=== PATIENT | male | born 1990 | race Caucasian/White ===

== ENCOUNTER 2019-01-23 21:32 | Emergency (ER) | payer OTHER ==
[~2019-01-23] VITALS: Wt 70.3 kg
[2019-01-23 21:32] VITALS: BP 128/76
[~2019-01-23 21:32] MED LIST: CIPRODEX 0.3%-7.5 ML OT; MOTRIN800 MG PO; PREDNISONE10 MG PO; TRIMOX500 MG PO
[2019-01-23] MEDS ORDERED: ZOFRAN4 MG PO (21:42)
== END 2019-01-23 22:00 | disposition home or self-care (01) ==
LOC: ED 21:32
DX: R11.2 Nausea with vomiting, unspecified (principal); R42 Dizziness and giddiness; F14.90 Cocaine use, unspecified, uncomplicated; F12.90 Cannabis use, unspecified, uncomplicated; F17.200 Nicotine dependence, unspecified, uncomplicated; Z90.49 Acquired absence of other specified parts of digestive tract

== ENCOUNTER 2019-02-22 02:16 | Emergency (ER) | payer OTHER ==
[~2019-02-22] VITALS: Ht 182.8 cm; Wt 68.0 kg
[~2019-02-22 02:16] MED LIST changes: +ZOFRAN4 MG PO
[2019-02-22 02:19] VITALS: BP 106/63
== END 2019-02-22 02:54 | disposition home or self-care (01) ==
LOC: ED 02:16
DX: R51 Headache (principal); R42 Dizziness and giddiness; Z02.79 Encounter for issue of other medical certificate; F12.90 Cannabis use, unspecified, uncomplicated; F14.90 Cocaine use, unspecified, uncomplicated; F17.210 Nicotine dependence, cigarettes, uncomplicated

== ENCOUNTER 2019-07-17 20:43 | Inpatient (IN) | payer OTHER ==
[~2019-07-17] VITALS: Ht 182.8 cm; Wt 73.3 kg
[2019-07-17 21:03] VITALS: BP 121/70
--- NOTE | 2019-07-17 21:15 | NUR ---
PT GIVEN BOX LUNCH AND JOSE ALEJANDRO FELIPE
[2019-07-17 21:59] LABS: BASO % 0.2 % (0.0-1.0); EOS # 0.2 10*3/uL (0.0-0.4); EOS % 1.9 % (1.0-4.0); HEMATOCRIT 37.5 % (42.0-52.0); HEMOGLOBIN 12.5 g/dl (14.0-18.0); LYMPH % 18.6 % (27.0-41.0); MEAN CELL VOLUME 96.9 fl (80.0-94.0); MEAN CORPUSCULAR HGB 32.3 pg (27.0-31.0); MEAN CORPUSCULAR HGB CONC 33.3 g/dl (33.0-37.0); MEAN PLATELET VOLUME 9.1 fl (9.6-12.3); MONO # 0.6 10*3/uL (0.1-1.0); MONO % 5.3 % (3.0-9.0); NEUT # 8.1 10*3/uL (2.3-7.9); NEUT % 73.8 % (47.0-73.0); PLATELET COUNT AUTOMATED 274 10*3/uL (130-400); RED BLOOD COUNT 3.87 10*6/uL (4.50-5.90); RED CELL DISTRI WIDTH 12.4 % (0-14.5); WHITE BLOOD COUNT 10.9 10*3/uL (4.8-10.8)
[2019-07-17 22:02] LABS: URINE AMPHETAMINES > 1000 (1000ng/ml); URINE BARBITURATES < 200 (200ng/ml); URINE BENZODIAZEPINES < 200 (200ng/ml); URINE CANNABINOIDS (THC) > 50 (50ng/ml); URINE COCAINE > 300 (300ng/ml); URINE METHADONE < 300 (300ng/ml); URINE OPIATES < 300 (300ng/ml)
[2019-07-17 22:04] LABS: URINE PHENCYCLIDINE < 25 (25ng/ml)
[2019-07-17 22:05] LABS: BILIRUBIN NEGATIVE (NEGATIVE); BLOOD NEGATIVE (NEGATIVE); CLARITY CLEAR (CLEAR); COLOR YELLOW (YELLOW); GLUCOSE NEGATIVE (NEGATIVE); KETONE NEGATIVE (NEGATIVE); LEUKO ESTERASE NEGATIVE (NEGATIVE); NITRITE NEGATIVE (NEGATIVE); UROBILINOGEN 0.2 E.U./dl (0.2-1.0)
[2019-07-17 22:09] LABS: BACTERIA 1+; RBC 0-2 rbc/hpf (0-2)
--- NOTE | 2019-07-17 22:23 | NUR ---
PT EATING VERY LITTLE OF BOX LUNCH PT STATES HE CAN ONLY EAT VERY LITTLE AT A TIME BECAUSE OF BEING "DOPE SICK" THIS RN OFFERED PT SILVIA PT REFUSED STATES HE WILL BE ALRIGHT PT WITH NO REQUESTS AT THIS TIME PT WATCHING TV CALL LIGHT IN REACH
[2019-07-17 22:42] LABS: ALBUMIN 3.7 gm/dl (3.1-4.5); ALKALINE PHOSPHATASE 80 U/L (45-117); BUN 12 mg/dl (7-24); CHLORIDE 108 mmol/L (98-107); CREATININE 0.88 mg/dL (0.70-1.30); SGOT/AST 16 IU/L (3-35); SGPT/ALT 29 U/L (12-78); SODIUM 142 mmol/L (136-145); TOTAL PROTEIN 6.5 gm/dL (6.4-8.2)
[2019-07-17 22:49] LABS: ETHYL ALCOHOL < 3.0 mg/dl (<3)
--- NOTE | 2019-07-17 23:01 | NUR ---
REPORT RECEIVED FROM LEONOR SUN. PT SLEEPING AT THIS TIME, RESPIRATIONS EASY.
--- NOTE | 2019-07-18 00:25 | NUR ---
PT CONTINUES TO REST IN BED. NO DISTRESS NOTED AT THIS TIME. CALL LIGHT WITHIN REACH. WILL CONTINUE TO MONITOR.
[2019-07-18 01:18] VITALS: BP 124/72
--- NOTE | 2019-07-18 01:19 | NUR ---
PT AWAKE AT THIS TIME. 100% ON RA. NO VOICED COMPLAINTS. WILL CONTINUE TO MONITOR. RESTING IN BED, WATCHING TELEVISION AT THIS TIME.
--- NOTE | 2019-07-18 02:23 | NUR ---
PT RESTING IN BED AT THIS TIME. NO DISTRESS NOTED. PT NO VOICED COMPLAINTS. WILL CONTINUE TO MONITOR.
--- NOTE | 2019-07-18 03:46 | NUR ---
PT CONTINUES TO REST. NO VOICED COMPLAINTS. CALL LIGHT WITHIN REACH, WILL CONTINUE TO MONITOR. 100% ON RA.
--- NOTE | 2019-07-18 04:40 | NUR ---
PT WATCHING TELEVISION AT THIS TIME. PT AMBULATED TO RESTROOM. NO VOICED COMPLAINTS. WILL CONTINUE TO MONITOR.
--- NOTE | 2019-07-18 06:08 | NUR ---
PT GIVEN JUICE PER PT REQUEST. CONTINUES TO WATCH TELEVISION. 100% ON RA. NO VOICED COMPLAINTS. WILL CONTINUE TO MONITOR.
[2019-07-18] MEDS ORDERED: PREDNISONE20 M1 PO (06:56)
--- NOTE | 2019-07-18 07:23 | NUR ---
resting in bed eyes closed
--- NOTE | 2019-07-18 07:24 | NUR ---
PT RESTING NO DISTRESS AROUSES EASILY AMBULATORY TO THE BATHROOM
--- NOTE | 2019-07-18 09:30 | NUR ---
PT ACCEPTED BY [facility] WAITING FOR ATTILA
[2019-07-18 09:31] VITALS: BP 124/76
[2019-07-18 10:35] VITALS: BP 128/77
--- NOTE | 2019-07-18 10:35 | NUR ---
29 year old MALE admitted to room # 515-2 for stabilization. Reports an addiction to SUBOXONE last used 24 hours prior to admission. Compliant with admission procedure. Patient c/o anxiety, is unable to sit still, paces the floor continuously, looks about room, unable to focus eyes on nurse during interview. See assessment forms for additional information about patient status.
--- NOTE | 2019-07-18 10:49 | NUR ---
MEDICATED WITH PRN PO REQUIP FOR RESTLESS LEGS, ROBAXIN AND MOTRIN FOR BACK ACHES AND CRAMPS, BENTYL FOR ABDOMINAL CRAMPING, NICOTINE PATCH FOR SMOKING CRAVINGS, ALSO ADMINISTERED SUBUTEX SCHEDULED FOR WITHDRAWAL SYMPTOMS AT THIS TIME.
--- NOTE | 2019-07-18 11:45 | NUR ---
Patient resting. Responding to scheduled and prn medications with fewer complaints of pain and anxiety.
--- NOTE | 2019-07-18 12:14 | NUR ---
[place] STAFF SPOKE WITH PATIENT. PATIENT MEETS [facility]. PATIENT WANTS MEDICATION-ASSISTED TREATMENT AT [facility] IN [place]. ATTILA AVILES B.A. INFORMATICA MDM DEVELOPER
[2019-07-18 13:00] VITALS: BP 127/99
--- NOTE | 2019-07-18 15:21 | NUR ---
Patient resting quietly with no c/o discomfort. Respirations easy and regular. Vital signs stable. No overt distress. JOSEPH SHORT
[2019-07-18 16:00] VITALS: BP 120/69
--- NOTE | 2019-07-18 19:30 | NUR ---
PT RESTING IN BED. VISITOR AT BEDSIDE. ASSESSMEBNT COMPLETE. PT HAS NO COMPLAINTS AT THIS TIME. NO S/S OF PAIN/DISTRESS NOTED. PT DENIES THE NEED FOR ANYTHING AT THIS TIME. CALL LIGHT WITHIN REACH. WILL CONTINUE TO MONITOR.
[2019-07-18 20:00] VITALS: BP 111/68
--- NOTE | 2019-07-18 23:29 | NUR ---
24 HR chart check completed.
[2019-07-19] VITALS: BP 118/69
--- NOTE | 2019-07-19 01:16 | NUR ---
PT RESTING IN BED WITH EYES CLOSED. NO S/S OF DISTRESS/DISCOMFORT NOTED. RESPIRATIONS EASY AND REGULAR. CALL LIGHT WITHIN REACH. WILL CONTINUE TO MONITOR.
--- NOTE | 2019-07-19 07:30 | NUR ---
PT RESTING IN BED WITH EYES CLOSED, EASILY AROUSED. PLEASANT AND COOPERATIVE. VITALS STABLE. ALERT AND ORIENTED X 3. CAP REFILL < 3 SECONDS. SKIN TURGOR NON-TENTING. POSITIVE PERIPHERAL PULSES. HEART SOUNDS NORMAL- RATE OF 82, STRONG AND REGULAR. RESPIRATIONS EASY AND NON-LABORED- RATE OF 16. SPO2 98% ON R/A. LUNGS CLEAR THROUGHOUT. ABDOMEN SOFT, NON-TENDER, NON-DISTENDED. BOWEL SOUNDS X 4. SKIN WARM, DRY, AND INTACT. NO COMPLAINTS AT THIS TIME. WILL CONTINUE TO ASSESS. CECILIA RUBIO [facility]
[2019-07-19 08:00] VITALS: BP 104/62
--- NOTE | 2019-07-19 09:54 | NUR ---
PT SITTING ON SIDE OF BED EATING BREAKFAST. PLEASANT. RESPIRATIONS EASY AND NON-LABORED. NO COMPLAINTS AT THIS TIME. WILL CONTINUE TO ASSESS. CECILIA MALCOLMCC
[2019-07-19 12:00] VITALS: BP 118/68
--- NOTE | 2019-07-19 12:05 | NUR ---
PT IS RESTING IN BED WITH EYES CLOSED. VITALS STABLE. RESPIRATIONS EASY AND NON-LABORED. NO COMPLAINTS AT THIS TIME. WILL CONTINUE TO ASSESS. CECILIA RAMOS
--- NOTE | 2019-07-19 15:12 | NUR ---
PATIENT WILL BE GOING TO [facility] FOR HIS AFTERCARE PLAN. PATIENT HAS A N APPOINTMENT ON MONDAY AT 9AM. PATIENT AGREES AND UNDERSTANDS HIS AFTERCARE PLAN. ATTILA AVILES B.A. FINANCIAL SYSTEMS ADMINISTRATOR
[2019-07-19 16:00] VITALS: BP 118/70
[2019-07-19 20:00] VITALS: BP 116/72
--- NOTE | 2019-07-19 21:15 | NUR ---
PATIENT RESTING ON RT SIDE, NO S/S DISTRESS, EASY UNLABORED RESPIRATIONS ON ROOM AIR. BED IN LOW, LOCKED POS, CALL LIGHT IN REACH.
[2019-07-20] VITALS: BP 104/66
--- NOTE | 2019-07-20 02:45 | NUR ---
SCHEDULED SUBUTEX PROVIDED AT THIS TIME. PT OFFERS NO COMPLAINTS. ORANGE JUICE GIVEN PER REQUEST. CALL LIGHT IN REACH.
[2019-07-20 06:19] LABS: BASO % 0.3 % (0.0-1.0); EOS # 0.2 10*3/uL (0.0-0.4); EOS % 2.8 % (1.0-4.0); HEMOGLOBIN 14.5 g/dl (14.0-18.0); LYMPH # 2.2 10*3/uL (1.3-4.4); LYMPH % 31.8 % (27.0-41.0); MEAN CELL VOLUME 94.9 fl (80.0-94.0); MEAN CORPUSCULAR HGB CONC 33.7 g/dl (33.0-37.0); MEAN PLATELET VOLUME 9.6 fl (9.6-12.3); MONO # 0.7 10*3/uL (0.1-1.0); MONO % 9.6 % (3.0-9.0); NEUT # 3.7 10*3/uL (2.3-7.9); NEUT % 55.2 % (47.0-73.0); PLATELET COUNT AUTOMATED 308 10*3/uL (130-400); RED BLOOD COUNT 4.53 10*6/uL (4.50-5.90); RED CELL DISTRI WIDTH 12.2 % (0-14.5); WHITE BLOOD COUNT 6.8 10*3/uL (4.8-10.8)
[2019-07-20 06:44] LABS: CREATININE 0.89 mg/dL (0.70-1.30)
[2019-07-20 08:00] VITALS: BP 122/74
[2019-07-20 12:00] VITALS: BP 136/66
[2019-07-20 16:00] VITALS: BP 110/66
[2019-07-20 20:00] VITALS: BP 108/62
--- NOTE | 2019-07-20 20:42 | NUR ---
24 HR chart check completed.
--- NOTE | 2019-07-21 00:07 | NUR ---
Patient resting quietly with no c/o discomfort. Respirations easy and regular. No overt distress. OTILIA BENSON
[2019-07-21 08:00] VITALS: BP 91/63
--- NOTE | 2019-07-21 08:30 | NUR ---
Patient resting quietly with no c/o discomfort. Respirations easy and regular. Vital signs stable. No overt distress. KHAI BRIDGES R
--- NOTE | 2019-07-21 09:49 | NUR ---
case management was asked to talk with patient regarding discharge today and patient stating he was homeless, visited with patient, he states he normally sleeps on friends couches but he is homeless, he stated he has a friend that is currently at the [facility] and he would like to go there. case management gave patient a list of different shelters and educated him that he would have to call them and see if they have openings and have a valid photo ID. he stated he would call the [facility] and he has a photo ID, he also stated that he would have another friend come and pick him up and take him to the care home when he is discharged, patient's nurse notified
--- NOTE | 2019-07-21 10:36 | NUR ---
Discharge instructions reviewed with patient/family. Patient receptive and verbalizes understanding. Follow-up care arranged. Written instructions given to patient/family. KHAI BRIDGES
== END 2019-07-21 10:15 | disposition home or self-care (01) | DRG 773 ==
LOC: ED 20:43 → EDHOLD 07-18 09:31 → 5E 07-18 09:31
PROVIDERS: Emergency Medicine; ADMIT Family Medicine
DX: F11.23 Opioid dependence with withdrawal (principal); E83.51 Hypocalcemia; G25.81 Restless legs syndrome; E87.8 Other disorders of electrolyte and fluid balance, not elsewhere classified; D72.810 Lymphocytopenia; F14.10 Cocaine abuse, uncomplicated; F19.10 Other psychoactive substance abuse, uncomplicated; F15.10 Other stimulant abuse, uncomplicated; D53.9 Nutritional anemia, unspecified; F12.10 Cannabis abuse, uncomplicated; R73.9 Hyperglycemia, unspecified; F17.210 Nicotine dependence, cigarettes, uncomplicated; F41.9 Anxiety disorder, unspecified; D72.829 Elevated white blood cell count, unspecified; Z79.899 Other long term (current) drug therapy; Z80.6 Family history of leukemia; Z83.3 Family history of diabetes mellitus

== ENCOUNTER 2020-05-26 05:09 | Emergency (ER) | payer OTHER ==
[~2020-05-26] VITALS: Ht 182.8 cm; Wt 86.2 kg
[~2020-05-26 05:09] MED LIST changes: +PREDNISONE20 M1 PO
[2020-05-26 05:22] VITALS: BP 119/74
[2020-05-26] MEDS ORDERED: SUBLOCADE300 MG/1.5 SQ (05:36)
[2020-05-26] MEDS ORDERED: CLARITIN10 MG PO (05:59)
== END 2020-05-26 06:16 | disposition home or self-care (01) ==
LOC: ED 05:09
DX: J06.9 Acute upper respiratory infection, unspecified (principal); F41.9 Anxiety disorder, unspecified; F17.210 Nicotine dependence, cigarettes, uncomplicated; Z79.899 Other long term (current) drug therapy

== ENCOUNTER 2020-08-26 03:25 | Emergency (ER) | payer OTHER ==
[~2020-08-26] VITALS: Ht 182.8 cm; Wt 72.6 kg
[~2020-08-26 03:25] MED LIST changes: +CLARITIN10 MG PO; +SUBLOCADE300 MG/1.5 SQ
[2020-08-26 03:39] VITALS: BP 133/76
[2020-08-26] MEDS ORDERED: PREDNISONE20 M1 PO (04:25)
[2020-08-26] MEDS ORDERED: AUGMENTIN 875875 MG PO (04:25)
== END 2020-08-26 04:41 | disposition home or self-care (01) ==
LOC: ED 03:25
DX: J34.89 Other specified disorders of nose and nasal sinuses (principal); R09.89 Other specified symptoms and signs involving the circulatory and respiratory systems; R05 Cough; F17.200 Nicotine dependence, unspecified, uncomplicated; Z90.49 Acquired absence of other specified parts of digestive tract; Z90.89 Acquired absence of other organs

== ENCOUNTER 2022-07-10 07:17 | Emergency (ER) | payer MEDICAID ==
[~2022-07-10] VITALS: Wt 82.1 kg
[~2022-07-10 07:17] MED LIST changes: +AUGMENTIN 875875 MG PO
[2022-07-10 08:07] LABS: BASO % 0.2 % (0.0-1.0); EOS # 0.1 10*3/uL (0.0-0.4); EOS % 1.7 % (1.0-4.0); HEMATOCRIT 43.9 % (42.0-52.0); LYMPH # 1.1 10*3/uL (1.3-4.4); LYMPH % 20.7 % (27.0-41.0); MEAN CELL VOLUME 93.4 fl (80.0-94.0); MEAN CORPUSCULAR HGB 30.9 pg (27.0-31.0); MEAN PLATELET VOLUME 8.7 fl (9.6-12.3); MONO # 0.4 10*3/uL (0.1-1.0); MONO % 6.9 % (3.0-9.0); NEUT # 3.6 10*3/uL (2.3-7.9); NEUT % 70.3 % (47.0-73.0); PLATELET COUNT AUTOMATED 283 10*3/uL (130-400); RED CELL DISTRI WIDTH 11.9 % (0-14.5); WHITE BLOOD COUNT 5.2 10*3/uL (4.8-10.8)
[2022-07-10 09:14] LABS: ALKALINE PHOSPHATASE 107 U/L (46-116); BUN 13 mg/dl (9-23); CHLORIDE 105 mmol/L (98-107); POTASSIUM 4.1 mmol/L (3.4-5.1); SGPT/ALT 136 U/L (10-49); TOTAL PROTEIN 6.7 gm/dL (6.0-8.0)
[2022-07-10 09:31] LABS: ETHYL ALCOHOL < 3.0 mg/dl (<3)
[2022-07-10 11:16] VITALS: BP 110/70
== END 2022-07-10 14:16 | disposition home or self-care (01) ==
LOC: ED 07:17
PROVIDERS: Student in an Organized Health Care Education/Training Program
DX: T40.601A Poisoning by unspecified narcotics, accidental (unintentional), initial encounter (principal); Z90.49 Acquired absence of other specified parts of digestive tract; Z90.89 Acquired absence of other organs; F14.90 Cocaine use, unspecified, uncomplicated; F12.90 Cannabis use, unspecified, uncomplicated; Z87.891 Personal history of nicotine dependence; Y92.89 Other specified places as the place of occurrence of the external cause